=== PATIENT | male | born 1990 | race Two or more races ===

== ENCOUNTER 2017-06-28 09:19 | Emergency (ER) | payer OTHER ==
[~2017-06-28] VITALS: Ht 185.4 cm; Wt 70.3 kg
[2017-06-28] MEDS ORDERED: ONDANSETRON 4 MG TAB.RAPDIS ONE (09:49)
[2017-06-28] MEDS ORDERED: ONDANSETRON 4 MG TAB.RAPDIS PO ONE (10:00)
[2017-06-28 10:45] VITALS: BP 120/61
== END 2017-06-28 10:45 ==
LOC: ER 09:22
DX: F11.23 Opioid dependence with withdrawal (principal)
CPT/HCPCS: A4606; Q0162; Z7610